=== PATIENT | male | born 1960 | race Hispanic/Latino ===

== ENCOUNTER 2021-08-29 06:27 | Emergency (ER) | payer BC ==
[~2021-08-29] VITALS: Ht 167.6 cm; Wt 63.5 kg
[~2021-08-29 06:27] MED LIST: AMLO-257 PO; GEMF600T89 PO; METR-172 PO; ROPI1TAB13 PO; TAMSULOSIN PO
[2021-08-29 07:20] LABS: BASOPHILS % (AUTO) 0.6 % (0.0-5.0); EOSINOPHILS % (AUTO) 3.4 % (0.0-8.0); HEMATOCRIT 43.8 % (42-54); LYMPHOCYTES % (AUTO) 15.3 % (21.0-51.0); MEAN CORPUSCULAR HEMOGLOBIN 27.9 pg (27.0-33.0); MEAN CORPUSCULAR HGB CONC 33.1 g/dL (32.0-36.0); MEAN CORPUSCULAR VOLUME 84.2 fL (79-99); MONOCYTES % (AUTO) 6.3 % (3.0-13.0); NEUTROPHILS % (AUTO) 74.1 % (40.0-77.0); PLATELET COUNT (AUTO) 212 K/uL (130-400); RED CELL DISTRIBUTION WIDTH 13.4 % (11.0-15.5); WHITE BLOOD COUNT (AUTO) 8.9 K/uL (4.8-10.8)
[2021-08-29 07:51] LABS: ALBUMIN 3.6 g/dL (3.5-5.0); BILIRUBIN,TOTAL 0.4 mg/dL (0.2-1.0); TOTAL PROTEIN, SERUM 7.4 g/dL (6.0-8.3)
[2021-08-29 08:37] LABS: APPEARANCE,URINE Clear (CLEAR); BILIRUBIN,URINE Negative (NEGATIVE); COLOR,URINE Yellow (YELLOW); GLUCOSE, URINE (UA) Negative (NEGATIVE); KETONES,URINE Negative (NEGATIVE); LEUKOCYTE ESTERASE ,URINE Trace (NEGATIVE); NITRATE,URINE Negative (NEGATIVE); OCCULT BLOOD,URINE Nonhemolyzed Trace (NEGATIVE); PROTEIN,URINE Negative (NEGATIVE); UROBILINOGEN,URINE 0.2 mg/dL (0.2-1.0)
[2021-08-29 09:18] LABS: BACTERIA,URINE Few /HPF (None Seen); SQUAMOUS EPITHELIAL CELL,UR 0-2 /HPF (0-2); WBC,URINE 0-1 /HPF (0-1)
[2021-08-29 10:33] VITALS: BP 124/74
== END 2021-08-29 10:35 | disposition home or self-care (01) ==
LOC: EDH 06:27
DX: K85.90 Acute pancreatitis without necrosis or infection, unspecified (principal); I10 Essential (primary) hypertension; Z79.899 Other long term (current) drug therapy
CPT/HCPCS: 36415; 80053; 81001; 83690; 85025; 93005

== ENCOUNTER 2024-08-02 02:44 | Inpatient (IN) | payer BC, MEDICARE ==
[~2024-08-02] VITALS: Ht 167.6 cm; Wt 93.0 kg
[~2024-08-02 02:44] MED LIST changes: -ROPI1TAB13 PO; +ROPI1TAB46 PO
[2024-08-02 03:11] LABS: APPEARANCE,URINE CLEAR (CLEAR); BILIRUBIN,URINE NEGATIVE (NEGATIVE); COLOR,URINE COLORLESS (YELLOW); GLUCOSE, URINE (UA) NEGATIVE (NEGATIVE); KETONES,URINE NEGATIVE (NEGATIVE); LEUKOCYTE ESTERASE ,URINE NEGATIVE Leu/uL (NEGATIVE); NITRATE,URINE NEGATIVE (NEGATIVE); OCCULT BLOOD,URINE SMALL (NEGATIVE); PROTEIN,URINE NEGATIVE (NEGATIVE); UROBILINOGEN,URINE 0.2 mg/dL (0.2-1.0)
[2024-08-02 03:16] LABS: BASOPHILS # (AUTO) 0.04 K/uL (0.00-0.20); BASOPHILS % (AUTO) 0.7 % (0.0-5.0); EOSINOPHILS # (AUTO) 0.19 K/uL (0.00-0.70); EOSINOPHILS % (AUTO) 3.5 % (0.0-8.0); HEMATOCRIT 41.2 % (42-54); IMMATURE GRANULOCYTE ABSOLUTE 0.02 K/uL (0-1); LYMPHOCYTES # (AUTO) 1.3 K/uL (1.0-4.8); LYMPHOCYTES % (AUTO) 24.2 % (21.0-51.0); MEAN CORPUSCULAR HEMOGLOBIN 27.7 pg (27.0-33.0); MEAN CORPUSCULAR HGB CONC 33.7 g/dL (32.0-36.0); MEAN CORPUSCULAR VOLUME 82.1 fL (79-99); MONOCYTES # (AUTO) 0.5 K/uL (0.1-1.0); MONOCYTES % (AUTO) 8.6 % (3.0-13.0); NEUTROPHILS # (AUTO) 3.4 K/uL (1.8-7.7); NEUTROPHILS % (AUTO) 62.6 % (40.0-77.0); PLATELET COUNT (AUTO) 202 K/uL (130-400); RED BLOOD CELL COUNT(AUTO) 5.02 MIL/uL (4.50-6.20); WHITE BLOOD COUNT (AUTO) 5.5 K/uL (4.8-10.8)
[2024-08-02 03:20] LABS: ADD UA MICROSCOPIC YES
[2024-08-02 03:24] LABS: BACTERIA,URINE RARE /HPF (None Seen); MUCUS,URINE RARE LPF (None Seen); WBC,URINE 0-1 /HPF (0-1)
[2024-08-02 03:34] LABS: CREATININE 0.9 mg/dL (0.5-1.3); POTASSIUM 3.7 mmol/L (3.5-5.1)
--- NOTE | 2024-08-02 03:35 | ERN ---
ED Note History of Present Illness Stated Complaint: CHEST PAIN Chief Complaint: Chest Pain Time Seen by MD: 02:55 Dictation: This is a 64-year-old male who presented to the emergency room with complaints of right-sided chest pain. He stated that he ate a foot long her dog with fries for dinner and he could not sleep and was browsing the face book. He took his medications including ropinirole for his restless leg syndrome and began experiencing lower chest pain mostly towards the right side. He points to the xiphoid area and this is associated with tenderness. No nausea vomitings no right upper quadrant pain he denied any obvious reflux. No diaphoresis or syncope Temperature 97.8 pulse 75 respirations 18 blood pressure 163/96 pulse oximetry of 97% on room air Past medical history significant for hypertension restless leg syndrome, history of pancreatitis thought to be secondary to hypertriglyceridemia. Allergies: Coded Allergies: No Known Drug Allergies (Unverified Allergy, Unknown, 08/16/21) Home Meds Active Scripts Metronidazole (Metronidazole) 500 Mg Tablet, 500 MG PO Q8H for 5 Days, #15 TAB Prov:HORACIO MELENDEZ Jr., MD 08/18/21 Gemfibrozil (Gemfibrozil) 600 Mg Tablet, 600 MG PO HS for 30 Days, #30 TAB Prov:HORACIO MELENDEZ Jr., MD 08/18/21 Amlodipine Besylate (Amlodipine Besylate) 5 Mg Tablet, 5 TAB PO HS for 30 Days, #30 TAB Prov:HORACIO MELENDEZ Jr., MD 08/18/21 Reported Medications [Tamsulosin] 0.4 MG No Conflict Check, 0.4 MG PO HS 08/16/21 Ropinirole HCl (Ropinirole HCl) 1 Mg Tablet, 2 TAB PO HS 08/16/21 Past Medical History Past Medical History: High Cholesterol, Hypertension, Pancreatitis, Prostatitis Additional Past Medical Hx: RESTLESS LEG SYNDROME Surgical History: None Social History: ETOH, Lives with family, Other RN Note Reviewed/Agreed w/PFSH: Yes Review of System Dictation Constitutional: Negative for fever,chills, and weight loss Eyes: Negative for injury, pain,redness, and discharge ENT: Negative for injury,pain or swelling Cardiovascular: Positive for right side chest pain to the right of the xiphoid process, palpitations, and edema Respiratory: Negative for shortness of breath, cough, and wheezing, Abdomen/GI: Negative for abdominal pain, nausea, vomiting, diarrhea, and constipation Back: Negative for injury and pain : Negative for injury, bleeding and discharge MS/Extremity: Negative for injury and deformity Skin: Negative for rash, and discoloration Neuro: Negative for headache, weakness, numbness, tingling, and seizure Psych: Negative for suicide ideation, homicidal ideation, and hallucinations Initial Vital Sign VS Vital Signs Date Time Temp Pulse Resp B/P (MAP) Pulse Ox O2 Delivery O2 Flow Rate FiO2 08/02/24 02:49 97.9 75 16 160/96 96 Room Air* 0 21 Physical Exam Dictation General: awake, alert, NAD obese male Head/Face: Normocephalic, atraumatic Eyes: PERRL, EOMI, vision at baseline ENT: oral cavity clear, TMs clear, no signs of infection Neck: Trachea midline, supple, no nuchal rigidity Cardiovascular: RRR, normal S1/S2, No MRGs, no JVD tenderness of the xiphoid and reproducible pain Respiratory: CTAB, no respiratory distress, No rales or wheezes Abdomen: Soft, non-tender, non-distended, normal bowel sounds, no guarding or rebound. Skin: Warm, dry, normal turgor, no rash MS/Extremity: Pulses equal, no cyanosis, neurovascular intact, FROM Neuro: COAx4, GCS 15, strength 5/5, CN 2-12 intact, normal cerebellar exam, normal gait, Psych: Normal behavior, mood, and affect normal Extremities-trace edema without any palpable cords, Homans sign is negative Results (Laboratory/Radiology) Laboratory/Radiology Laboratory Tests Test 08/02/24 02:58 08/02/24 03:06 08/02/24 05:03 08/02/24 05:05 Urine Color COLORLESS (YELLOW) Urine Appearance CLEAR (CLEAR) Urine pH 7.0 (5.0-8.0) Urine Specific [place] 1.011 (1.001-1.031) Urine Protein NEGATIVE mg/dL (NEGATIVE) Urine Glucose (UA) NEGATIVE mg/dL (NEGATIVE) Urine Ketones NEGATIVE mg/dL (NEGATIVE) Urine Occult Blood SMALL (NEGATIVE) H Urine Nitrate NEGATIVE (NEGATIVE) Urine Bilirubin NEGATIVE mg/dL (NEGATIVE) Urine Urobilinogen 0.2 mg/dL (0.2-1.0) Urine Leukocyte Esterase NEGATIVE [place]/uL Urine RBC 11-25 /HPF (0-1) H Urine WBC 0-1 /HPF (0-1) Urine Bacteria RARE /HPF (None Seen) White Blood Count 5.5 K/uL (4.8-10.8) Red Blood Count 5.02 MIL/uL (4.50-6.20) Hemoglobin 13.9 g/dL (14.0-18.0) L Hematocrit 41.2 % (42-54) L Mean Corpuscular Volume 82.1 fL (79-99) Mean Corpuscular Hemoglobin 27.7 pg (27.0-33.0) Mean Corpuscular Hemoglobin Concent 33.7 g/dL (32.0-36.0) Red Cell Distribution Width 13.0 % (11.0-15.5) Platelet Count 202 K/uL (130-400) Mean Platelet Volume 10.1 fL (7.5-10.5) Immature Granulocyte % (Auto) 0.4 % (0-1) Neutrophils (%) (Auto) 62.6 % (40.0-77.0) Lymphocytes (%) (Auto) 24.2 % (21.0-51.0) Monocytes (%) (Auto) 8.6 % (3.0-13.0) Eosinophils (%) (Auto) 3.5 % (0.0-8.0) Basophils (%) (Auto) 0.7 % (0.0-5.0) Neutrophils # (Auto) 3.4 K/uL (1.8-7.7) Lymphocytes # (Auto) 1.3 K/uL (1.0-4.8) Monocytes # (Auto) 0.5 K/uL (0.1-1.0) Eosinophils # (Auto) 0.19 K/uL (0.00-0.70) Basophils # (Auto) 0.04 K/uL (0.00-0.20) Absolute Immature Granulocyte (auto 0.02 K/uL (0-1) Nucleated Red Blood Cells 0.0 % (0.0-0.19) Sodium Level 139 mmol/L (136-145) Potassium Level 3.7 mmol/L (3.5-5.1) Chloride Level 104 mmol/L (101-111) Carbon Dioxide Level 26 mmol/L (21-32) Blood Urea Nitrogen 11 mg/dL (7-18) Creatinine 0.9 mg/dL (0.5-1.3) Glomerular Filtration Rate Calc 95 mL/min (>90) Random Glucose 121 mg/dL (70-105) H Total Calcium 8.3 mg/dL (8.5-10.1) L Total Creatine Kinase 116 U/L (21-232) Troponin I High Sensitivity 78 ng/L (4-75) *H 81 ng/L (4-75) *H B-Type Natriuretic Peptide 10 pg/mL (0-100) Influenza Type A Antigen Negative For Type A Influenza Type B Antigen Negative For Type B SARS-CoV-2, RNA, NAAT NEGATIVE SARS CoV-2 Test 08/02/24 06:06 Prothrombin Time 10.3 SEC (9.6-11.6) Prothromb Time International Ratio 0.97 (0.85-1.15) Activated Partial Thromboplast Time 28.8 SEC (26.3-35.5) Labs Reviewed?: Yes EKG Comment: 12 lead EKG done on 08/02/2024 at 2:39 a.m. showed a heart rate of 70, RI interval 174, QRS 99, QT/QTC 392/425 Impression normal sinus rhythm with no acute STT wave changes noted. Interpreted by ER MD Dr. Bergre Repeat EKG done on 08/02/2024 at 6:24 a.m. showed a heart rate of 62, RI interval 171, QRS 97, QT/QTC 414/420 Impression normal sinus rhythm in the EKG looks exactly similar to the 1 done at 2:39 a.m. no new changes seen. Interpreted by ER MD Dr. Berger ED Course ED Course Orders Procedure Category Date Status Time Vital Signs Per CPOE 08/02/24 Transmitted Routine 02:50 B-Type Natriuretic LAB 08/02/24 Complete Peptide 02:50 Chest 1vw RAD 08/02/24 Taken 02:50 12 Lead Ekg Tracing- EKG 08/02/24 Complete Technical 02:50 Oxygen By Nc/Pulse Ox CPOE 08/02/24 Transmitted 02:50 Maintain Iv CPOE 08/02/24 Transmitted 02:50 Iv Insertion CPOE 08/02/24 Transmitted 02:50 Cardiac Monitoring CPOE 08/02/24 Transmitted 02:50 Pulse Oximetry With CPOE 08/02/24 Transmitted Vs And Prn 02:50 Cbc With Differential LAB 08/02/24 Complete 02:50 Activity: Br W/Brp CPOE 08/02/24 Transmitted With Assist 02:50 Creatine Kinase, Total LAB 08/02/24 Complete 02:50 Urinalysis Profile LAB 08/02/24 Complete 02:50 Bedside Troponin-I LAB.ER 08/02/24 In Process (Poc) 02:50 Basic Metabolic Panel LAB 08/02/24 Complete 02:50 Ketorolac PHA 08/02/24 Complete Tromethamine 15mg/Ml 04:00 Pantoprazole 40mg Tab PHA 08/02/24 Complete (Protonix 40mg Tab 04:00 Troponin I High LAB 08/02/24 Complete Sensitivity 03:48 Troponin I High LAB 08/02/24 Complete Sensitivity 04:29 Covid Rna Naat LAB 08/02/24 Complete 05:03 Influenza Type A & B, LAB 08/02/24 Complete Rapid 05:03 Aspirin 325mg Tab PHA 08/02/24 Complete (Aspirin 325mg Tab) 06:00 Heparin 25,000 PHA 08/02/24 In Process Units/250ml D5w 06:00 12 Lead Ekg Tracing- EKG 08/02/24 Complete Technical 06:17 Heparin 5,000 Unit PHA 08/02/24 Complete Vial (Heparin 5,000 U 06:30 Heparin 5,000 Unit PHA 08/02/24 Complete Vial (Heparin 5,000 U 06:20 Pt And Ptt LAB 08/02/24 Complete 06:25 Current Medications Medications (Trade) Dose Ordered Sig/Eric Route PRN Reason Start Time Stop Time Status Last Admin Dose Admin Aspirin (Aspirin 325mg Tab) 325 mg ONCE ONCE PO 08/02/24 06:00 08/02/24 06:01 DC 08/02/24 06:35 Heparin Sodium (Porcine) (HEParin 5,000 UNIT VIAL) 5,000 unit STK-MED ONCE .ROUTE 08/02/24 06:20 08/02/24 06:21 DC Heparin Sodium (Porcine) (HEParin 5,000 UNIT VIAL) 7,000 unit ONCE ONCE IV 08/02/24 06:30 08/02/24 06:31 DC 08/02/24 06:34 Heparin Sodium/ Dextrose 250 ml @ 0 mls/hr PROTOCOL PRN IV PROTOCOL 08/02/24 06:00 08/03/24 05:59 08/02/24 06:37 Ketorolac Tromethamine (toRADol) 15 mg ONCE ONCE IV 08/02/24 04:00 08/02/24 04:01 DC 08/02/24 03:54 Pantoprazole Sodium (PROTonix 40MG TAB) 40 mg ONCE ONCE PO 08/02/24 04:00 08/02/24 04:01 DC 08/02/24 03:54 Vital Signs Date Time Temp Pulse Resp B/P (MAP) Pulse Ox O2 Delivery O2 Flow Rate FiO2 08/02/24 02:59 97.9 75 18 160/96 98 08/02/24 02:59 97.9 75 18 163/96 97 Room Air* 0 21 08/02/24 02:49 97.9 75 16 160/96 96 Room Air* 0 21 We will perform diagnostic labs, advanced imaging and administer medications according to the patient's complaint. Once the results are available, will review and personally interpreted the labs to rule out any acute life- threatening emergency the trach require immediate intervention and treatment. I will then re-evaluate the patient after treatment and diagnostic exams have return to determine whether the patient requires any further testing, can safely be discharged home or need further admission to hospital for additional treatment and evaluation. 3:33 a.m. CBC with a normal limits urinalysis shows some occult blood BNP 7 and troponins pending I have updated the patient and his spouse on available lab tests and the chest x-ray . pain are likely related to inflammation of the xiphoid process or possibly hiatal hernia. 4:31 a.m. 1st set of troponins were 78. We will get a 2nd set of troponin and trended to see if patient also has a component of pericarditis or ischemia. 5:50 a.m. 2nd set of troponins was also obtained which was 81. Updated the patient on concern for an acute coronary syndrome and recommended admission to the hospital for further management. Patient and spouse agreed 6:[address] Escudero, hospitalist accepted the patient for admission and further management HEART Score Response (Comments) Value History: Low suspicion (0) 0 EKG: Normal 0 Age: > 65yrs (+2) 2 Risk Factors: 1-2 risk factors (+1) 1 Initial Troponin: 1-3x Normal Limit (+1) 1 HEART Score Risk: Mod Risk for MACE (4-6) Total 4 Medical Decision Making MDM MDM: Differential diagnosis: Unstable angina, atypical chest pain secondary to costochondritis, hiatal hernia pain, gastritis, esophagitis Rationale: Tests considered and ordered secondary to shared decision making include: labs, ECG and radiology Previous outside records reviewed: Old ER visits. Risk of complication and/or morbidity or mortality of patient management: None Medications-Per medication reconciliation Need for hospitalization: Patient does meet criteria for hospitalization. Need for emergency major/minor surgery: No There are no social concerns with this patient. Prescription drug management Prescriptions will include symptomatic care Patient's prior external medical records from other ER visits were reviewed by me as indicated. Prior testing and results from previous visits were reviewed. Prior tests were taken into account with medical decision making and resource utilization, independent historian/historians were used to obtain complete medical history. I independently interpreted the test that were performed, results were reviewed by me and considered findings on radiology if ordered. Medical management and examination interpretation discussions were had by me with other qualified healthcare professionals as indicated for the patient's care. Problem List Problem List: (1) Hypertension (2) Chest pain (3) Elevated troponin (4) Chest wall tenderness (5) Acute coronary syndrome with high troponin DX & DISP Disposition: Inpatient Decision to Admit Time: 05:49 Departure Impression: Primary Impression: Acute coronary syndrome with high troponin Additional Impressions: Hypertension, Chest wall tenderness Condition: Stable Additional Instructions: Patient was informed of all the diagnostic labs and procedures conducted in the emergency room today and demonstrated understanding of the results. I personally reviewed and interpreted all the diagnostic exams performed in the ER today. The patient will be admitted to the hospital for further treatment and evaluation. Disposition-admit to facility Condition-stable/guarded Course-uncertain at this time Pain status-decreased Assessment-exam unchanged Admission Certification- I certify that the patients status is appropriate and is based on my best clinical judgment and the patient's condition as documented in the medical records Referrals: PAMELA FAJARDO (PCP) CALEB BERGER MD Aug 02, 2024 03:35
--- NOTE | 2024-08-02 03:39 | NUR ---
ASSEMED PT CARE AT THIS TIME
[2024-08-02 03:50] LABS: B-TYPE NATRIURETIC PEPTIDE 10 pg/mL (0-100)
[2024-08-02] MEDS: ketOROlac 15MG/ML VIAL (15MG/ML) IV ONE (03:54)
[2024-08-02] MEDS: PANTOPrazole 40 MG TAB DR PO ONE (03:54)
[2024-08-02 05:23] LABS: SARS-CoV-2, RNA, NAAT NEGATIVE SARS CoV-2 (NEGATIVE)
[2024-08-02 05:28] LABS: INFLUENZA TYPE A Negative For Type A (NEGATIVE); INFLUENZA TYPE B Negative For Type B (NEGATIVE)
--- NOTE | 2024-08-02 06:26 | EKG ---
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
--- NOTE | 2024-08-02 06:32 | EKG ---
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
[2024-08-02] MEDS: HEParin 5,000 UNIT VIAL ONE (06:34)
[2024-08-02] MEDS: HEParin 5,000 UNIT VIAL IV ONE (06:34)
[2024-08-02] MEDS: ASPIRIN 325MG TAB PO ONE (06:35)
[2024-08-02] MEDS: HEParin 25,000 UNITS/250ML D5W 250 ML IV PRN (06:37)
[2024-08-02 06:39] LABS: INR 0.97 (0.85-1.15); PROTHROMBIN TIME 10.3 SEC (9.6-11.6)
[2024-08-02 06:41] LABS: PARTIAL THROMBOPLASTIN TIME 28.8 SEC (26.3-35.5)
[2024-08-02 07:08] LABS: AMPHET/METH SCREEN,URINE NEGATIVE (NEGATIVE); BARBITURATE SCREEN, URINE NEGATIVE (NEGATIVE); BENZODIAZEPINES SCREEN,URINE NEGATIVE (NEGATIVE); CANNABINOID SCREEN,URINE NEGATIVE (NEGATIVE); COCAINE SCREEN,URINE NEGATIVE (NEGATIVE); OPIATE SCREEN,URINE NEGATIVE (NEGATIVE); PHENCYCLIDINE SCREEN,URINE NEGATIVE (NEGATIVE)
--- NOTE | 2024-08-02 07:54 | HP ---
[facility] Date of Service: Aug 02, 2024 Time of Service: 07:43 HISTORY OF PRESENT ILLNESS: [ ] 64-year-old male with past medical history of essential hypertension, hypertriglyceridemia, hyperlipidemia, pancreatitis and obesity presented to the ED with chief complaint of midsternal chest pain onset at 1:00 a.m. this morning. Onset occurred while at rest. Chest discomfort described as soreness, more pronounced with mobility and palpation. Alleviated by rest. No Associated symptoms. Cardiovascular risk factors include essential hypertension, hyperlipidemia. On ED presentation, initial blood pressure shows 160/96, p atient received one dose of aspirin 325 mg, Protonix 40 mg and Toradol 50 mg IV once. CBC is unremarkable. Glucose was reported at 121 otherwise BMP is stable. BNP is negative. Initial high sensitivity troponin was 78, repeat is 81. ED physician started patient on heparin drip. Recommended patient be admitted to the telemetry floor. Patient admitted under hospitalist services to rule out ACS. 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 REVIEW OF SYSTEMS CONSTITUTIONAL: Denies fevers, chills, or night sweats. No unintentional weight loss reported. NEUROLOGICAL: Denies headache, amaurosis fugax, motor weakness, sensory deficit, vertigo/spinning sensation, gait abnormalities, or tremors. ENT: No hearing loss, otalgia, otorrhea, rhinitis, rhinorrhea, hoarseness, or sore throat. CARDIOVASCULAR: Denies any exertional angina, dyspnea on exertion, orthopnea, paroxysmal nocturnal dyspnea, palpitations, life-threatening arrhythmias, claudication. PULMONARY: Denies any shortness of breath, cough, phlegm/sputum, hemoptysis, pleuritic chest pain. SLEEP: Denies morning headaches, daytime somnolence or napping. Denies difficulty falling asleep, staying asleep, waking from sleep. Denies knowledge of snoring. GASTROINTESTINAL: Denies any type of dysphagia to either liquids or solids. Denies nausea, vomiting, pyrosis, early satiety, abdominal pain, diarrhea, constipation, or changes in stool consistency or caliber. Denies coffee-ground emesis, hematemesis, hematochezia, or melanotic stools. GENITOURINARY: Denies frequency, urgency, nocturia, hematuria or incontinence (Storage/Irritative symptoms.) Low urinary stream, straining to void, urinary intermittency or hesitancy, splitting of the voiding stream, terminal dribbling. ENDOCRINOLOGIC: Denies polyuria, polydipsia, polyphagia or heat/cold intolerances. HEMATOLOGIC: Denies thrombophilia/previous clots, or coagulopathy/bleeding diso rders. ONCOLOGIC: Denies personal history of malignancy. DERMATOLOGIC: Denies rashes or pruritus. PSYCHIATRIC: Denies any suicidal or homicidal ideation. Denies hallucinations. PAST MEDICAL HISTORY: [ ] See H&P PAST SURGICAL HISTORY: [ ] Denies PAST SOCIAL HISTORY: [ ] Denies smoking tobacco, drinks alcohol socially, denies illicit drug use, lives with family single family home FAMILY HISTORY: [ ] Coded Allergies: No Known Drug Allergies (Unverified Allergy, Unknown, 08/16/21) PHYSICAL EXAM GENERAL APPEARANCE: The patient is awake, alert, and oriented, in no acute cardiopulmonary distress. NEUROLOGICAL: Cranial nerves II-XII grossly intact. Motor is 5/5 in bilateral upper and lower extremities proximal to distal. No sensory deficits. HEENT: Face is symmetric. Pupils are equal and reactive. Extraocular movements are intact. NECK: Supple. No JVD. No thyromegaly. No submental, submandibular, pre- /postauricular, occipital or supraclavicular lymphadenopathy. CHEST: Normal chest expansion. No Telemetry. Midsternal chest pain with palpation LUNGS: Absence of any rales, rhonchi or any wheezing. CARDIOVASCULAR: Regular. S1 and S2 normal. No appreciable rubs, murmurs or gallops. ABDOMEN: Soft, nontender, and nondistended. There is no rebound, voluntary guarding, or rigidity. : Deferred. No Amanda. EXTREMITIES: Non-edematous and not cyanotic. No clubbing. Good capillary refill. SKIN: No skin breakdown. Vital Sign (Last 24 Hours) 08/02/24 06:42 Temp 98.1 Pulse 75 Resp 16 B/P (MAP) 136/88 Pulse Ox 98 O2 Delivery Room Air* O2 Flow Rate 0 FiO2 21 LABS: Laboratory: Test 08/02/24 06:06 08/02/24 05:05 08/02/24 05:03 08/02/24 03:06 Range/Units Prothrombin Time 10.3 9.6-11.6 SEC Prothromb Time International Ratio 0.97 0.85-1.15 Activated Partial Thromboplast Time 28.8 26.3-35.5 SEC Influenza Type A Antigen Negative For Type A NEGATIVE Influenza Type B Antigen Negative For Type B NEGATIVE SARS-CoV-2, RNA, NAAT NEGATIVE SARS CoV-2 NEGATIVE Troponin I High Sensitivity 81 *H 4-75 ng/L White Blood Count 5.5 4.8-10.8 K/uL Red Blood Count 5.02 4.50-6.20 MIL/uL Hemoglobin 13.9 L 14.0-18.0 g/dL Hematocrit 41.2 L 42-54 % Mean Corpuscular Volume 82.1 79-99 fL Mean Corpuscular Hemoglobin 27.7 27.0-33.0 pg Mean Corpuscular Hemoglobin Concent 33.7 32.0-36.0 g/dL Red Cell Distribution Width 13.0 11.0-15.5 % Platelet Count 202 130-400 K/uL Mean Platelet Volume 10.1 7.5-10.5 fL Immature Granulocyte % (Auto) 0.4 0-1 % Neutrophils (%) (Auto) 62.6 40.0-77.0 % Lymphocytes (%) (Auto) 24.2 21.0-51.0 % Monocytes (%) (Auto) 8.6 3.0-13.0 % Eosinophils (%) (Auto) 3.5 0.0-8.0 % Basophils (%) (Auto) 0.7 0.0-5.0 % Neutrophils # (Auto) 3.4 1.8-7.7 K/uL Lymphocytes # (Auto) 1.3 1.0-4.8 K/uL Monocytes # (Auto) 0.5 0.1-1.0 K/uL Eosinophils # (Auto) 0.19 0.00-0.70 K/uL Basophils # (Auto) 0.04 0.00-0.20 K/uL Absolute Immature Granulocyte (auto 0.02 0-1 K/uL Nucleated Red Blood Cells 0.0 0.0-0.19 % Sodium Level 139 136-145 mmol/L Potassium Level 3.7 3.5-5.1 mmol/L Chloride Level 104 101-111 mmol/L Carbon Dioxide Level 26 21-32 mmol/L Blood Urea Nitrogen 11 7-18 mg/dL Creatinine 0.9 0.5-1.3 mg/dL Glomerular Filtration Rate Calc 95 >90 mL/min Random Glucose 121 H 70-105 mg/dL Total Calcium 8.3 L 8.5-10.1 mg/dL Total Creatine Kinase 116 21-232 U/L B-Type Natriuretic Peptide 10 0-100 pg/mL Test 08/02/24 02:58 Range/Units Urine Color COLORLESS YELLOW Urine Appearance CLEAR CLEAR Urine pH 7.0 5.0-8.0 Urine Specific [place] 1.011 1.001-1.031 Urine Protein NEGATIVE NEGATIVE mg/dL Urine Glucose (UA) NEGATIVE NEGATIVE mg/dL Urine Ketones NEGATIVE NEGATIVE mg/dL Urine Occult Blood SMALL H NEGATIVE Urine Nitrate NEGATIVE NEGATIVE Urine Bilirubin NEGATIVE NEGATIVE mg/dL Urine Urobilinogen 0.2 0.2-1.0 mg/dL Urine Leukocyte Esterase NEGATIVE NEGATIVE [place]/uL Urine RBC 11-25 H 0-1 /HPF Urine WBC 0-1 0-1 /HPF Urine Bacteria RARE None Seen /HPF Urine Opiates Screen NEGATIVE NEGATIVE Urine Barbiturates Screen NEGATIVE NEGATIVE Urine Phencyclidine Screen NEGATIVE NEGATIVE Urine Amphetamines Screen NEGATIVE NEGATIVE Urine Benzodiazepines Screen NEGATIVE NEGATIVE Urine Cocaine Screen NEGATIVE NEGATIVE Urine Marijuana (THC) Screen NEGATIVE NEGATIVE Current Medications Medications (Trade) Dose Ordered Sig/Eric Route PRN Reason Start Time Stop Time Status Last Admin Dose Admin Aspirin (Aspirin 81mg Ec Tab) 81 mg DAILY PO 08/03/24 09:00 09/02/24 08:59 Heparin Sodium/ Dextrose 250 ml @ 0 mls/hr PROTOCOL PRN IV PROTOCOL 08/02/24 06:00 08/03/24 05:59 08/02/24 06:37 15.8 MLS/HR DIAGNOSTICS / RADIOLOGY: [ ] ASSESSMENT: [ ] Chest pain rule out ACS, POA Suspected costochondritis, POA Hyperglycemia, POA Elevated troponins, POA Essential hypertension Hyperlipidemia Hypertriglyceridemia Pancreatitis Obesity BMI 33.1 PLAN: [ ] Admitting to the telemetry floor Starting heart healthy diet Trend troponins 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 once, Protonix 40 mg and Toradol 15 mg IV once in the ED Continue aspirin 81 mg p.o. daily Continue atorvastatin 40 mg p.o. at bedtime Monitoring replace electrolytes per hospital protocol Monitor a.m. labs PRN Treatment - Add when necessary meds for nausea, vomiting, pain, constipation, insomnia. DVT/GI prophylaxis- Continue Lovenox and famotidine at current doses. Full CODE STATUS This document was generated in part using voice recognition software, occasional wrong word or sound alike substitutions may have occurred due to the inherent limitations of voice recognition software. Read the chart carefully and recognize using context, where the substitutions have occurred. Although every effort was made to edit the content, materials branch chief and typing errors may occur Which the following were discussed? Hospice care- no ___ Therapeutic options- yes Advanced directives-- yes Other discussions-__no advanced directives___ Discussed with whom? __patient_ Voluntary nature of this service was explained to the patient? Yes Time 35 minutes FARHAD LEAVITT Aug 02, 2024 07:54
[2024-08-02 08:23] LABS: AMYLASE 48 U/L (25-115)
[2024-08-02 08:26] LABS: CHOLESTEROL 145 mg/dL (<200); HDL CHOLESTEROL 29 mg/dL (29-71); LDL DIRECT 69 mg/dL (0-99); TRIGLYCERIDES 603 mg/dL (30-200)
--- NOTE | 2024-08-02 09:05 | HMCIMG ---
Exam Type: CHEST 1VW Clinical Information: CHEST PAIN Comparison: None Findings: The lungs are clear of infiltrates. The heart is normal in size. The bony and soft tissue structures of the chest are unremarkable. Impression: Clear lungs.
--- NOTE | 2024-08-02 10:33 | NUR ---
DCP Patient states lives Madison King, Spouse [phone]; son, daughter and grandchildren. States he is retired, remains independent and drives self. States able to complete ADL's on her own. States has a shower chair; denies other medical devices. Denies home health services, home care provider or dialysis. [facility] Upon discharge, Madison King, Spouse [phone] and family will assist with care, as needed. At this time, is unaware of additional needs. Addendum: 08/02/24 at 1040 by PRIMO VALLE RN CM Amended: Links added.
[2024-08-02 13:51] LABS: INR 1.05 (0.85-1.15); PROTHROMBIN TIME 11.1 SEC (9.6-11.6)
--- NOTE | 2024-08-02 14:32 | NUR ---
PTT-126.7 BET PRIMARY RN MADE AWARE
[2024-08-02 14:33] LABS: PARTIAL THROMBOPLASTIN TIME 126.7 SEC (26.3-35.5)
[2024-08-02] MEDS ORDERED: GEMF600T89 PO (14:55)
--- NOTE | 2024-08-02 14:55 | NUR ---
MEDICATION RECONCILIATION DONE
[2024-08-02] MEDS ORDERED: FLUT16H NS (14:58)
[2024-08-02] MEDS ORDERED: TAMS-1 PO (14:58)
--- NOTE | 2024-08-02 18:04 | NUR ---
CARDIOLOGY DR QUIGLEY MADE AWARE OF PT.
[2024-08-02] MEDS: guaiFENesin-DM 200/20MG 10ML PO PRN (18:34)
--- NOTE | 2024-08-02 18:42 | CONS ---
CONSULT NOTE: CARDIOLOGY Reason for consult: Chest pain HPI/story at presentation: This is a pleasant 64-year-old male with past medical history as replacement complains of atypical chest pain. Pain is associate with a cough and is retrosternal and sometimes, pressure-like sensation. Known risk factors as below. Cardiology was consulted for further evaluation management Subjective: 08/02/2024 no active chest pain Past medical history: See below Allergies, Meds See chart Review of systems Review of Systems Constitutional: Negative for chills and fever. HENT: Negative for ear discharge and ear pain. Eyes: Negative for photophobia and discharge. Respiratory: Negative for cough, sputum production and stridor. Cardiovascular: Negative for chest pain and palpitations. Gastrointestinal: Negative for diarrhea and vomiting. Genitourinary: Negative for frequency. Musculoskeletal: Negative for myalgias. Skin: Negative for rash. Neurological: Negative for focal weakness and seizures. Endo/Heme/Allergies: Negative for polydipsia. Psychiatric/Behavioral: Negative for hallucinations. Vitals see chart PHYSICAL EXAMINATION GENERAL: The patient is alert and oriented*3 HEENT: Nonicteric sclerae, non traumatic HEART: Regular rate and rhythm with no murmurs LUNGS: Clear to auscultation bilaterally ABDOMEN: No acute issues, non tender GENITAL, RECTAL: deferred SKIN: No rash NEUROLOGIC: NFND EXTREMITIES: No edema ASSESSMENT CHEST PAIN Atypical presentation Negative troponins EKG, normal sinus rhythm EF of 45 to 50%, 07/2024 HYPERTENSION HYPERLIPIDEMIA HYPERTRIGLYCERIDEMIA OBESITY CORE MEASURES Not applicable OTHER MEDICAL PROBLEMS Pancreatitis PLAN 08/02/2024 On aspirin, statin. EF of 45 to 50%, 06/2024 given wall motion modalities, atypical symptoms of presentation, will proceed with stress testing tomorrow. ATTESTATION I was involved substantially in the care of this patient Number and complexity of problems addressed: 1 acute illness with systemic features Amount and or complexity of data Review of prior external note(s) from each unique source: 2+ Ordering of each unique test : 0 Review of the result(s) of each unique test: 2+ Assessment requiring an independent historian(s): No Independent interpretation of test performed by another MD/QHCP/appropriate source (not separately reported) : No Discussion of management or test interpretation with external MD/ QHCP/appropriate source (not separately reported) : No Risk status (cardiac, billing related): Moderate SIVAGNANAM,KAMESH MD Aug 02, 2024 18:42
--- NOTE | 2024-08-02 18:45 | HMCSR ---
APPROVED REPORT EXAM: Two-dimensional and M-mode echocardiogram with Doppler and color Doppler. INDICATION ICD: EF/ VALVE FUNCTION 2D Dimensions RVDd3.8 cmLVEF(%)53.1 (>50%)LVED Vol(simp.)144.0 mL IVSd0.9 (0.7-1.1cm)FS(%)28 %LVES Vol(simp.)82.0 mL LVDd5.1 (3.8-5.6cm)LA (2D)3.1 (1.6-4.0cm)LVEF(%, simp.)43 % PWd1.3 (0.7-1.1cm)Ao Root(2D)3.5 (2.0-3.7cm)LA ESV INDEX (4CH)13.80 mL/m2 LVDs3.7 (2.5-4.0cm)LVOT diam2.2 (1.8-2.4cm)LA ESV INDEX (2CH)29.90 mL/m2 IVC diam2.3 cmLA ESV INDEX (BP)22.30 mL/m2 Aortic Valve AoV VTI0.2 mAo Mean GR3.0 mmHgLVOT VTI0.17 m PLACIDO (VMAX)2.7 cm2Al P1/2T618 msAVA (VTI) 2.7 cm2 Mitral Valve MV E Vmax72.6 cm/sDECEL Dycj863 ms MV A Vmax83.9 cm/sP 1/2 T89 ms E/A ratio0.9MVA (PHT)2.5 cm2 MR Max PG34 mmHg TDI E/E' Wubswc21.5E/E' Ubkwdsv76.4 Medial E' Peak V4.40 cm/sLateral E' Peak V7.00 cm/s Tricuspid Valve TR Vmax1.9 m/s TR Peak GR15.0 mmHg Left Ventricle The left ventricle is normal size. Septal bounce present There is normal left ventricular wall thickn ess. LVEF is 45-50%. Grade 1 diastolic dysfunction Right Ventricle The right ventricle is normal size. Right ventricular systolic function is mildly reduced. Atria The left atrium size is normal. The right atrium size is normal. Aortic Valve The aortic valve is normal in structure. Mild aortic regurgitation. There is no aortic valvular steno sis. Mitral Valve The mitral valve is normal in structure. Mitral regurgitation is trace. There is no mitral valve sten osis. Tricuspid Valve The tricuspid valve is normal in structure. Mild tricuspid regurgitation. Pulmonic Valve The pulmonary valve is normal in structure. There is no pulmonic valvular regurgitation. Great Vessels The aortic root is normal in size. The IVC is dilatedand collapses >50% with inspiration. Pericardium There is no pericardial effusion. Conclusion LVEF is 45-50%. Grade 1 diastolic dysfunction There is normal left ventricular wall thickness. The left ventricle is normal size. Septal bounce present There is no pericardial effusion. Normal pulmonary pressures Study quality was adequate
[2024-08-02 21:23] LABS: INR 1.05 (0.85-1.15); PROTHROMBIN TIME 11.1 SEC (9.6-11.6)
[2024-08-02] MEDS: atorVAStatin 40 MG TABLET PO SCH (21:29)
[2024-08-02 22:10] LABS: PARTIAL THROMBOPLASTIN TIME 128.4 SEC (26.3-35.5)
--- NOTE | 2024-08-02 22:15 | NUR ---
ADMIT NOTE ADMIT ROOM 405 VIA STRETCHER FROM ER, NO FAMILY AT BEDSIDE, NO SOB, NO C/O PAIN AT THIS TIME, TEACH PLAN OF CARE AND EXPECTED OUTCOME, PATIENT VERBALIZES UNDERSTANDING VIA TEACH BACK
[2024-08-03] VITALS: BP 156/93; PULSE 73; RESP 19; TEMP 98.8
[2024-08-03 03:51] LABS: BASOPHILS # (AUTO) 0.04 K/uL (0.00-0.20); BASOPHILS % (AUTO) 0.7 % (0.0-5.0); EOSINOPHILS # (AUTO) 0.19 K/uL (0.00-0.70); EOSINOPHILS % (AUTO) 3.2 % (0.0-8.0); HEMATOCRIT 39.6 % (42-54); IMMATURE GRANULOCYTE ABSOLUTE 0.01 K/uL (0-1); LYMPHOCYTES # (AUTO) 1.4 K/uL (1.0-4.8); LYMPHOCYTES % (AUTO) 24.2 % (21.0-51.0); MEAN CORPUSCULAR HEMOGLOBIN 27.3 pg (27.0-33.0); MEAN CORPUSCULAR HGB CONC 33.8 g/dL (32.0-36.0); MEAN CORPUSCULAR VOLUME 80.8 fL (79-99); MONOCYTES # (AUTO) 0.5 K/uL (0.1-1.0); MONOCYTES % (AUTO) 7.6 % (3.0-13.0); NEUTROPHILS # (AUTO) 3.8 K/uL (1.8-7.7); NEUTROPHILS % (AUTO) 64.1 % (40.0-77.0); PLATELET COUNT (AUTO) 199 K/uL (130-400); RED CELL DISTRIBUTION WIDTH 12.9 % (11.0-15.5); WHITE BLOOD COUNT (AUTO) 5.9 K/uL (4.8-10.8)
[2024-08-03 04:07] LABS: CREATININE 0.9 mg/dL (0.5-1.3); POTASSIUM 3.6 mmol/L (3.5-5.1)
[2024-08-03 04:44] VITALS: BP 149/93; PULSE 62; RESP 18; TEMP 97.8
[2024-08-03 08:08] VITALS: BP 154/76; PULSE 63; RESP 19; TEMP 98
[2024-08-03 08:25] VITALS: O2SAT 97
--- NOTE | 2024-08-03 12:02 | PN ---
[facility] PROGRESS NOTE Date of Service: Aug 03, 2024 Time of Service: 12:02 SUBJECTIVE: [ ] 64-year-old male with past medical history of essential hypertension, hypertriglyceridemia, hyperlipidemia, pancreatitis and obesity presented to the ED with chief complaint of midsternal chest pain onset at 1:00 a.m. this morning. Onset occurred while at rest. Chest discomfort described as soreness, more pronounced with mobility and palpation. Alleviated by rest. No Associated symptoms. Cardiovascular risk factors include essential hypertension, hyperlipidemia. On ED presentation, initial blood pressure shows 160/96, patient received one dose of aspirin 325 mg, Protonix 40 mg and Toradol 50 mg IV once. CBC is unremarkable. Glucose was reported at 121 otherwise BMP is stable. BNP is negative. Initial high sensitivity troponin was 78, repeat is 81. ED physician started patient on heparin drip. Recommended patient be admitted to the telemetry floor. Patient admitted under hospitalist services to rule out ACS. Consulting slot host. 08/03/2024 today at bedside evaluation patient is alert and oriented x3. NPO pending stress test. Latest morning vital signs prior to be taken to stress test are stable, afebrile, satting 97% on room air. This morning's labs are stable. Discussed case with slot host Dr. Rosales, we will follow up with recommendations from slot host once stress test is resulted. Post stress test patient is awake and alert x3. Restarted consistent carb diet and tolerating. We will update patient with slot host's recommendations. REVIEW OF SYSTEMS CONSTITUTIONAL: Denies fevers, chills, or night sweats. No unintentional weight loss reported. NEUROLOGICAL: Denies headache, amaurosis fugax, motor weakness, sensory deficit, vertigo/spinning sensation, gait abnormalities, or tremors. ENT: No hearing loss, otalgia, otorrhea, rhinitis, rhinorrhea, hoarseness, or sore throat. CARDIOVASCULAR: Denies any exertional angina, dyspnea on exertion, orthopnea, paroxysmal nocturnal dyspnea, palpitations, life-threatening arrhythmias, claudication. PULMONARY: Denies any shortness of breath, cough, phlegm/sputum, hemoptysis, pleuritic chest pain. SLEEP: Denies morning headaches, daytime somnolence or napping. Denies difficulty falling asleep, staying asleep, waking from sleep. Denies knowledge of snoring. GASTROINTESTINAL: Denies any type of dysphagia to either liquids or solids. Denies nausea, vomiting, pyrosis, early satiety, abdominal pain, diarrhea, constipation, or changes in stool consistency or caliber. Denies coffee-ground emesis, hematemesis, hematochezia, or melanotic stools. GENITOURINARY: Denies frequency, urgency, nocturia, hematuria or incontinence (Storage/Irritative symptoms.) Low urinary stream, straining to void, urinary intermittency or hesitancy, splitting of the voiding stream, terminal dribbling. ENDOCRINOLOGIC: Denies polyuria, polydipsia, polyphagia or heat/cold intolerances. HEMATOLOGIC: Denies thrombophilia/previous clots, or coagulopathy/bleeding di sorders. ONCOLOGIC: Denies personal history of malignancy. DERMATOLOGIC: Denies rashes or pruritus. PSYCHIATRIC: Denies any suicidal or homicidal ideation. Denies hallucinations. PHYSICAL EXAM GENERAL APPEARANCE: The patient is awake, alert, and oriented, in no acute cardiopulmonary distress. NEUROLOGICAL: Cranial nerves II-XII grossly intact. Motor is 5/5 in bilateral upper and lower extremities proximal to distal. No sensory deficits. HEENT: Face is symmetric. Pupils are equal and reactive. Extraocular movements are intact. NECK: Supple. No JVD. No thyromegaly. No submental, submandibular, pre- /postauricular, occipital or supraclavicular lymphadenopathy. CHEST: Normal chest expansion. No Telemetry. Midsternal chest pain with palpation LUNGS: Absence of any rales, rhonchi or any wheezing. CARDIOVASCULAR: Regular. S1 and S2 normal. No appreciable rubs, murmurs or gallops. ABDOMEN: Soft, nontender, and nondistended. There is no rebound, voluntary guarding, or rigidity. : Deferred. No Amanda. EXTREMITIES: Non-edematous and not cyanotic. No clubbing. Good capillary refill. SKIN: No skin breakdown. Vital Signs (last 8hr) Date Time Temp Pulse Resp B/P (MAP) Pulse Ox O2 Delivery O2 Flow Rate FiO2 08/03/24 08:25 97 Room Air* 0 21 08/03/24 08:08 98.1 63 19 154/76 97 Room Air 08/03/24 04:44 97.9 62 18 149/93 95 Room Air LABS: Laboratory: Test 08/03/24 09:19 08/03/24 03:30 08/02/24 21:07 08/02/24 11:07 Range/Units Activated Partial Thromboplast Time 68.8 #H 26.3-35.5 SEC White Blood Count 5.9 4.8-10.8 K/uL Red Blood Count 4.90 4.50-6.20 MIL/uL Hemoglobin 13.4 L 14.0-18.0 g/dL Hematocrit 39.6 L 42-54 % Mean Corpuscular Volume 80.8 79-99 fL Mean Corpuscular Hemoglobin 27.3 27.0-33.0 pg Mean Corpuscular Hemoglobin Concent 33.8 32.0-36.0 g/dL Red Cell Distribution Width 12.9 11.0-15.5 % Platelet Count 199 130-400 K/uL Mean Platelet Volume 10.0 7.5-10.5 fL Immature Granulocyte % (Auto) 0.2 0-1 % Neutrophils (%) (Auto) 64.1 40.0-77.0 % Lymphocytes (%) (Auto) 24.2 21.0-51.0 % Monocytes (%) (Auto) 7.6 3.0-13.0 % Eosinophils (%) (Auto) 3.2 0.0-8.0 % Basophils (%) (Auto) 0.7 0.0-5.0 % Neutrophils # (Auto) 3.8 1.8-7.7 K/uL Lymphocytes # (Auto) 1.4 1.0-4.8 K/uL Monocytes # (Auto) 0.5 0.1-1.0 K/uL Eosinophils # (Auto) 0.19 0.00-0.70 K/uL Basophils # (Auto) 0.04 0.00-0.20 K/uL Absolute Immature Granulocyte (auto 0.01 0-1 K/uL Nucleated Red Blood Cells 0.0 0.0-0.19 % Sodium Level 136 136-145 mmol/L Potassium Level 3.6 3.5-5.1 mmol/L Chloride Level 101 101-111 mmol/L Carbon Dioxide Level 29 21-32 mmol/L Blood Urea Nitrogen 13 7-18 mg/dL Creatinine 0.9 0.5-1.3 mg/dL Glomerular Filtration Rate Calc 95 >90 mL/min Random Glucose 106 H 70-105 mg/dL Total Calcium 8.3 L 8.5-10.1 mg/dL Prothrombin Time 11.1 9.6-11.6 SEC Prothromb Time International Ratio 1.05 0.85-1.15 Group A Streptococcus Rapid negative NEGATIVE Test 08/02/24 11:04 08/02/24 06:06 08/02/24 05:05 08/02/24 03:06 Range/Units Troponin I High Sensitivity 79 *H 4-75 ng/L Hemoglobin A1c 6.0 4.0-6.0 % Estimated Average Glucose (eAG) 126 70-126 mg/dL Triglycerides Level 603 H 30-200 mg/dL Cholesterol Level 145 <200 mg/dL LDL Cholesterol 69 0-99 mg/dL HDL Cholesterol 29 29-71 mg/dL Amylase Level 48 # 25-115 U/L Lipase 41 16-77 U/L Influenza Type A Antigen Negative For Type A NEGATIVE Influenza Type B Antigen Negative For Type B NEGATIVE SARS-CoV-2, RNA, NAAT NEGATIVE SARS CoV-2 NEGATIVE Total Creatine Kinase 116 21-232 U/L B-Type Natriuretic Peptide 10 0-100 pg/mL Test 08/02/24 02:58 Range/Units Urine Color COLORLESS YELLOW Urine Appearance CLEAR CLEAR Urine pH 7.0 5.0-8.0 Urine Specific [place] 1.011 1.001-1.031 Urine Protein NEGATIVE NEGATIVE mg/dL Urine Glucose (UA) NEGATIVE NEGATIVE mg/dL Urine Ketones NEGATIVE NEGATIVE mg/dL Urine Occult Blood SMALL H NEGATIVE Urine Nitrate NEGATIVE NEGATIVE Urine Bilirubin NEGATIVE NEGATIVE mg/dL Urine Urobilinogen 0.2 0.2-1.0 mg/dL Urine Leukocyte Esterase NEGATIVE NEGATIVE [place]/uL Urine RBC 11-25 H 0-1 /HPF Urine WBC 0-1 0-1 /HPF Urine Bacteria RARE None Seen /HPF Urine Opiates Screen NEGATIVE NEGATIVE Urine Barbiturates Screen NEGATIVE NEGATIVE Urine Phencyclidine Screen NEGATIVE NEGATIVE Urine Amphetamines Screen NEGATIVE NEGATIVE Urine Benzodiazepines Screen NEGATIVE NEGATIVE Urine Cocaine Screen NEGATIVE NEGATIVE Urine Marijuana (THC) Screen NEGATIVE NEGATIVE Current Medications Medications (Trade) Dose Ordered Sig/Eric Route PRN Reason Start Time Stop Time Status Last Admin Dose Admin Acetaminophen (TYLenol 325MG TAB) 650 mg Q4H PRN PO PAIN/FEVER 08/02/24 23:30 09/01/24 23:29 Aspirin (Aspirin 81mg Ec Tab) 81 mg DAILY PO 08/03/24 09:00 09/02/24 08:59 Atorvastatin Calcium (LIPItor 40MG) 40 mg HS PO 08/02/24 21:00 09/01/24 20:59 08/02/24 21:29 40 MG Guaifenesin/ Dextromethorphan (RobiTUSSin DM 200/20MG 10ML) 10 ml Q6H PRN PO COUGH 08/02/24 18:00 09/01/24 17:59 08/02/24 18:34 10 ML Heparin Sodium/ Dextrose 250 ml @ 0 mls/hr PROTOCOL PRN IV PROTOCOL 08/02/24 06:00 08/03/24 06:00 DC 08/02/24 22:20 13.95 MLS/HR DIAGNOSTICS / RADIOLOGY: [ ] ASSESSMENT: Chest pain rule out ACS, POA chest pain resolved Suspected costochondritis, POA Hyperglycemia, POA improved Elevated troponins, POA monitoring Acute and chronic diastolic HF, POA Essential hypertension Hyperlipidemia Hypertriglyceridemia Pancreatitis Obesity BMI 33.1 PLAN: [ ] Continues admission in the medical telemetry floor Continue consistent carb diet Trend troponins Spoke with Dr. Rosales, post stress test, will review results and provide recommendations. Off heparin drip Reviewed 2D echo showing LVEF 45-50% grade 1 diastolic dysfunction. Pending lipid panel and hemoglobin A1c Home medications to be reviewed and reconciled Patient received one dose of aspirin 325 mg p.o. once, Protonix 40 mg and Toradol 15 mg IV once in the ED Continue aspirin 81 mg p.o. daily Continue atorvastatin 40 mg p.o. at bedtime Monitoring replace electrolytes per hospital protocol Monitor a.m. labs PRN Treatment - Add when necessary meds for nausea, vomiting, pain, constipation, insomnia. DVT/GI prophylaxis- Continue Lovenox and famotidine at current doses. Full CODE STATUS Disposition: Home possibly later today, pending cardiology's recommendations after stress test This document was generated in part using voice recognition software, occasional wrong word or sound alike substitutions may have occurred due to the inherent limitations of voice recognition software. Read the chart carefully and recognize using context, where the substitutions have occurred. Although every effort was made to edit the content, upper cutter out and typing errors may occur Which the following were discussed? Hospice care- no ___ Therapeutic options- yes Advanced directives-- yes Other discussions-__no advanced directives___ Discussed with whom? __patient_ Voluntary nature of this service was explained to the patient? Yes Time 35 minutes FARHAD LEAVITT Aug 03, 2024 12:02
[2024-08-03] MEDS ORDERED: REGADENOSON 0.4 MG/5 ML PF SYG IVP ONE (12:11)
[2024-08-03] MEDS: acetaMINOPHEN 325 MG TAB PO PRN (13:31)
[2024-08-03] MEDS: ASPIRIN 81 MG EC TAB PO SCH (13:31)
--- NOTE | 2024-08-03 15:40 | NUR ---
DR QUIGLEY SPOKE WITH DR QUIGLEY REGARDING HEPARIN DRIP. VERIFIED TO STOP HEPARIN DRIP AT THIS TIME. PLAN OF CARE ON GOING.
--- NOTE | 2024-08-03 17:17 | HMCSR ---
APPROVED REPORT TEST INDICATIONS Chest Pain The imaging protocol used to acquire images was Rest Tc-99m/stress Tc-99m 1 day Consent: The procedure was explained and understood by the patient. Informerd consent was witnessed MULUGETA Aburto First, low dose rest was performed then high dose stress. RESTING DATA: The resting ekg shows: NSR Rest SPECT myocardial perfusion imaging was performed in supine position minutes following the intra venous injection of 11 mCi of Tc-99 Sestamibi. Time of rest injection: 1015 Date: 08/03/2024 PHARMACOLOGIC STRESS: Pharmacologic stress test was performed by injecting regadenoson 0.4 mg IV push followed by the intra venous injection of 25 mCi of Tc-99 Sestamibi. Time of stress injection: 1216 Date: 08/03/2024 Heart Rate at time of stress injection: 68 bpm. The images were gated to evaluate regional wall motion and calculate left ventricular ejection fracti on. STRESS DETAILS Reason for Termination: Infusion complete Stress Symptoms: No chest pain or symptoms Max HR Achieved: 98 bpm % of APMHR Achieved: 74 Max Blood Pressure: 156/101 mmHg Stress ECG: NSR LV PERFUSION Predominantly fixed defect in the inferior wall, no evidence of ischemia or infarction noted. Likely attenuation artifact. EF of 54%. Low risk stress test as above
--- NOTE | 2024-08-03 17:41 | PN ---
CARDIOLOGY Reason for consult: Chest pain HPI/story at presentation: This is a pleasant 64-year-old male with past medical history as replacement complains of atypical chest pain. Pain is associate with a cough and is retrosternal and sometimes, pressure-like sensation. Known risk factors as below. Cardiology was consulted for further evaluation management Subjective: 08/02/2024 no active chest pain Past medical history: See below Allergies, Meds See chart Review of systems Review of Systems Constitutional: Negative for chills and fever. HENT: Negative for ear discharge and ear pain. Eyes: Negative for photophobia and discharge. Respiratory: Negative for cough, sputum production and stridor. Cardiovascular: Negative for chest pain and palpitations. Gastrointestinal: Negative for diarrhea and vomiting. Genitourinary: Negative for frequency. Musculoskeletal: Negative for myalgias. Skin: Negative for rash. Neurological: Negative for focal weakness and seizures. Endo/Heme/Allergies: Negative for polydipsia. Psychiatric/Behavioral: Negative for hallucinations. Vitals see chart PHYSICAL EXAMINATION GENERAL: The patient is alert and oriented*3 HEENT: Nonicteric sclerae, non traumatic HEART: Regular rate and rhythm with no murmurs LUNGS: Clear to auscultation bilaterally ABDOMEN: No acute issues, non tender GENITAL, RECTAL: deferred SKIN: No rash NEUROLOGIC: NFND EXTREMITIES: No edema ASSESSMENT CHEST PAIN Atypical presentation Negative troponins EKG, normal sinus rhythm EF of 45 to 50%, 07/2024 HYPERTENSION HYPERLIPIDEMIA HYPERTRIGLYCERIDEMIA OBESITY CORE MEASURES Not applicable OTHER MEDICAL PROBLEMS Pancreatitis PLAN 08/02/2024 On aspirin, statin. EF of 45 to 50%, 06/2024 given wall motion modalities, atypical symptoms of presentation, will proceed with stress testing tomorrow. 08/03/2024 Stress test today was within normal limits. Echocardiogram with mild wall motion manage recommend manage medically. Follow-up in the office. Can be discharged home from cardiac standpoint. Seen and examined 08/03/2024 at around 1800. ATTESTATION I was involved substantially in the care of this patient Number and complexity of problems addressed: 1 acute illness with systemic features Amount and or complexity of data Review of prior external note(s) from each unique source: 2+ Ordering of each unique test : 0 Review of the result(s) of each unique test: 2+ Assessment requiring an independent historian(s): No Independent interpretation of test performed by another MD/QHCP/appropriate source (not separately reported) : No Discussion of management or test interpretation with external MD/QHCP/appropriate source (not separately reported) : No Risk status (cardiac, billing related): Moderate Vitals/Labs Vital Signs Date Time Temp Pulse Resp B/P (MAP) Pulse Ox O2 Delivery O2 Flow Rate FiO2 08/03/24 08:25 97 Room Air* 0 21 08/03/24 08:08 98.1 63 19 154/76 Laboratory Tests 08/03/24 03:30 Medications Current Medications Ketorolac Tromethamine 15 mg ONCE ONCE IV Last administered on 08/02/24at 03:54; Start 08/02/24 at 04:00; Stop 08/02/24 at 04:01; Status DC Pantoprazole Sodium 40 mg ONCE ONCE PO Last administered on 08/02/24at 03:54; Start 08/02/24 at 04:00; Stop 08/02/24 at 04:01; Status DC Aspirin 325 mg ONCE ONCE PO Last administered on 08/02/24at 06:35; Start 08/02/24 at 06:00; Stop 08/02/24 at 06:01; Status DC Heparin Sodium/ Dextrose 250 ml @ 0 mls/hr PROTOCOL PRN IV Last administered on 08/02/24at 22:20; Start 08/02/24 at 06:00; Stop 08/03/24 at 06:00; Status DC Heparin Sodium (Porcine) 7,000 unit ONCE ONCE IV Last administered on 08/02/24at 06:34; Start 08/02/24 at 06:30; Stop 08/02/24 at 06:31; Status DC Heparin Sodium (Porcine) 5,000 unit STK-MED ONCE .ROUTE; Start 08/02/24 at 06:20; Stop 08/02/24 at 06:21; Status DC Aspirin 81 mg DAILY PO Last administered on 08/03/24at 13:31; Start 08/03/24 at 09:00; Stop 09/02/24 at 08:59 Atorvastatin Calcium 40 mg HS PO Last administered on 08/02/24at 21:29; Start 08/02/24 at 21:00; Stop 09/01/24 at 20:59 Guaifenesin/ Dextromethorphan 10 ml Q6H PRN PO Last administered on 08/03/24at 13:31; Start 08/02/24 at 18:00; Stop 09/01/24 at 17:59 Acetaminophen 650 mg Q4H PRN PO Last administered on 08/03/24at 13:31; Start 08/02/24 at 23:30; Stop 09/01/24 at 23:29 Regadenoson 0.4 mg STK-MED ONCE IVP; Start 08/03/24 at 12:11; Stop 08/03/24 at 12:11; Status DC FREDIS CHU MD Aug 03, 2024 17:41
--- NOTE | 2024-08-03 18:41 | DS ---
Discharge Summary Hospital Course Summary: 64-year-old male with past medical history of essential hypertension, hypertriglyceridemia, hyperlipidemia, pancreatitis and obesity presented to the ED with chief complaint of midsternal chest pain onset at 1:00 a.m. this morning. Onset occurred while at rest. Chest discomfort described as soreness, more pronounced with mobility and palpation. Alleviated by rest. No Associated symptoms. Cardiovascular risk factors include essential hypertension, hyperlipidemia. On ED presentation, initial blood pressure shows 160/96, patient received one dose of aspirin 325 mg, Protonix 40 mg and Toradol 50 mg IV once. CBC is unremarkable. Glucose was reported at 121 otherwise BMP is stable. BNP is negative. Initial high sensitivity troponin was 78, repeat is 81. ED physician started patient on heparin drip. Recommended patient be admitted to the telemetry floor. Patient admitted under hospitalist services to rule out ACS. Consulting case repairer. 08/03/2024 today at bedside evaluation patient is alert and oriented x3. NPO pending stress test. Latest morning vital signs prior to be taken to stress test are stable, afebrile, satting 97% on room air. This morning's labs are stable. Discussed case with case repairer Dr. Rosales, we will follow up with recommendations from case repairer once stress test is resulted. Post stress test patient is awake and alert x3. Restarted consistent carb diet and tolerating. We will update patient with case repairer's recommendations. Later today patient's primary nurse reports patient has been cleared from Cardiology standpoint for discharge. Stress test results show predominantly fixed defect in inferior wall, no evidence of ischemia or infarction noted, likely attenuation artifact, EF of 54%, low risk stress test. From medical standpoint patient is stable and cleared for discharge. Court Deputy(s): Quality Control Inspector Dr. Rosales Procedure(s): Nuclear med Lexiscan Cardiolite stress test 08/03/2024 Assessment/Plan: ASSESSMENT: Chest pain rule out ACS, POA chest pain resolved, ACS ruled out costochondritis, POA Hyperglycemia, POA improved Elevated troponins, POA monitoring Acute and chronic diastolic HF, POA Essential hypertension Hyperlipidemia Hypertriglyceridemia Pancreatitis Obesity BMI 33.1 PLAN: [ ] Medically and cardiac cleared for discharge home Continue home medications Continue consistent carb diet Trend troponins Spoke with Dr. Rosales, post stress test, will review results and provide recommendations. Off heparin drip Reviewed 2D echo showing LVEF 45-50% grade 1 diastolic dysfunction. Pending lipid panel and hemoglobin A1c Home medications to be reviewed and reconciled Patient received one dose of aspirin 325 mg p.o. once, Protonix 40 mg and Tor[place] l 15 mg IV once in the ED Continue aspirin 81 mg p.o. daily Continue atorvastatin 40 mg p.o. at bedtime Monitoring replace electrolytes per hospital protocol Monitor a.m. labs PRN Treatment - Add when necessary meds for nausea, vomiting, pain, constipation , insomnia. DVT/GI prophylaxis- Continue Lovenox and famotidine at current doses. Full CODE STATUS Disposition: Home This document was generated in part using voice recognition software, occasional wrong word or sound alike substitutions may have occurred due to the inherent limitations of voice recognition software. Read the chart carefully and recognize using context, where the substitutions have occurred. Although every effort was made to edit the content, duty officer and typing errors may occur Discharge Instructions: Okay to discharge home. Follow up with PCP in 2-3 days for continued evaluation. Follow up with case repairer in two weeks for continued evaluation. Continue home medications as usual. Follow a heart healthy diet. This case was discussed with Dr. Escudero and above plan was formulated Home Medications: Active Scripts Metronidazole (Metronidazole) 500 Mg Tablet, 500 MG PO Q8H for 5 Days, #15 TAB Prov:HORACIO MELENDEZ Jr., MD 08/18/21 Amlodipine Besylate (Amlodipine Besylate) 5 Mg Tablet, 5 TAB PO HS for 30 Days, #30 TAB Prov:HORACIO MELENDEZ Jr., MD 08/18/21 Reported Medications Fluticasone Propionate (Fluticasone Propionate) 50 Mcg/Actuation [place].susp, 2 SPRAY NS DAILY, #16 GM 0 Refills 08/02/24 Tamsulosin HCl (Flomax) 0.4 Mg Cap.er.24h, 2 CAP PO DAILY for 30 Days, #30 CAP 0 Refills 08/02/24 Gemfibrozil (Gemfibrozil) 600 Mg Tablet, 600 MG PO BIDAC, TAB 08/02/24 Ropinirole HCl (Ropinirole HCl) 1 Mg Tablet, 2 TAB PO HS 08/16/21 Discontinued Reported Medications [Tamsulosin] 0.4 MG No Conflict Check, 0.4 MG PO HS 08/16/21 Discontinued Scripts Gemfibrozil (Gemfibrozil) 600 Mg Tablet, 600 MG PO HS for 30 Days, #30 TAB Prov:HORACIO MELENDEZ Jr., MD 08/18/21 Time spent arranging discharge: 31-60 minutes [facility] Aug 03, 2024 18:41
[2024-08-03] MEDS ORDERED: ASPI-1197 PO (18:46)
--- NOTE | 2024-08-03 19:15 | NUR ---
DISCHARGE PATIENT HAS BEEN DISCHARGED HOME. PIVS REMOVED, PRESSURE GAUZE AND TAPE APPLIED TO SITE. TELE PACK REMOVED. PATIENT VERBALIZES UNDERSTANDING OF DISCHARGE PAPERWORK. PATIENT STATES HE FEELS COMFORTABLE WALKING DOWN TO PRIVATE AUTOMOBILE. PATIENT ACCOMPANIED BY FAMILY.
== END 2024-08-03 19:15 | disposition home or self-care (01) | DRG 205 ==
LOC: EDH 02:44 → EDHIP 02:45 → UNDOADMIN 02:45 → EDHIP 06:44 → 4BH 21:07
PROVIDERS: ADMIT Internal Medicine; ATTEND Internal Medicine
PROC: 4A02XM4 Measurement of Cardiac Total Activity, External Approach (ICD-10-PCS; principal; 2024-08-02)
PROC: 3E033HZ Introduction of Radioactive Substance into Peripheral Vein, Percutaneous Approach (ICD-10-PCS; 2024-08-02)
DX: M94.0 Chondrocostal junction syndrome [Tietze] (principal); I50.33 Acute on chronic diastolic (congestive) heart failure; K85.90 Acute pancreatitis without necrosis or infection, unspecified; I11.0 Hypertensive heart disease with heart failure; E78.1 Pure hyperglyceridemia; Z20.822 Contact with and (suspected) exposure to COVID-19; E66.9 Obesity, unspecified; R73.9 Hyperglycemia, unspecified; E78.00 Pure hypercholesterolemia, unspecified; G25.81 Restless legs syndrome; Z79.82 Long term (current) use of aspirin; Z68.33 Body mass index [BMI] 33.0-33.9, adult; Z79.899 Other long term (current) drug therapy
CPT/HCPCS: 36415; 71045; 78452; 80048; 80061; 80305; 81001; 82150; 82550; 83036; 83690; 83880; 84484; 85025; 85610; 85730; 87635; 87804; 87880; 93005; 93017; 93306; 96374; 96375; 99285; A9500; G0378; J1644; J1885; J2785